=== PATIENT | female | born 1955 | race Caucasian/White ===

== ENCOUNTER 2023-06-09 15:45 | Outpatient (CLI) | payer MEDICARE | END 2023-06-09 15:46 | disposition home or self-care (01) | LOC: ULT 15:45 | PROVIDERS: ATTEND Family Medicine | DX: R60.0 Localized edema (principal) ==

== ENCOUNTER 2023-10-20 09:46 | Outpatient (CLI) | payer MEDICARE | END 2023-10-20 09:47 | disposition home or self-care (01) | LOC: BICMAMMO 09:46 | PROVIDERS: ATTEND Family Medicine | DX: Z12.31 Encounter for screening mammogram for malignant neoplasm of breast (principal); Z91.89 Other specified personal risk factors, not elsewhere classified | CPT/HCPCS: 77063; 77067 ==

== ENCOUNTER 2024-05-02 15:22 | Outpatient (CLI) | payer MEDICARE | END 2024-05-02 15:23 | disposition home or self-care (01) | LOC: BICMAMMO 15:22 | PROVIDERS: ATTEND Family Medicine | DX: Z13.820 Encounter for screening for osteoporosis (principal); M85.852 Other specified disorders of bone density and structure, left thigh; Z78.0 Asymptomatic menopausal state | CPT/HCPCS: 77080 ==

== ENCOUNTER 2024-08-15 13:00 | Inpatient (IN) | payer MEDICARE ==
[2024-08-22] MEDS ORDERED: Sodium Chloride 0.9% 100 ML ONE ×2 (06:32→14:47)
[2024-08-22] MEDS ORDERED: CEFAZOLIN 2 GM VIAL ONE ×2 (06:32→14:47)
[2024-08-22] MEDS ORDERED: Thrombin 5000 UNITS/5 ML VIAL ONE (06:36)
[2024-08-22] MEDS ORDERED: Lidocaine 2% PF 5 ML VIAL ONE (06:47)
[2024-08-22] MEDS ORDERED: fentaNYL PF 100 MCG/2 ML SYRINGE ONE ×3 (06:47→11:38)
[2024-08-22] MEDS ORDERED: Rocuronium Bromide 10 MG/ML (10ML VIAL) ONE ×2 (06:47→10:28)
[2024-08-22] MEDS ORDERED: PROPOFOL 20 ML ONE ×2 (06:47→07:51)
[2024-08-22] MEDS ORDERED: MINERAL OIL/WHITE PETROLATUM 3.5 GM TUBE ONE (06:51)
[2024-08-22] MEDS ORDERED: Promethazine HCl 25 MG/ML VIAL IM PRN (06:56)
[2024-08-22] MEDS ORDERED: Ondansetron PF 4 MG/2 ML Vial IVP PRN (06:56)
[2024-08-22] MEDS ORDERED: HYDROcodone/Acetaminophen 7.5/325 mg Tablet PO PRN (06:56)
[2024-08-22] MEDS ORDERED: Prochlorperazine 10 MG/2 ML VIAL IM PRN (06:56)
[2024-08-22] MEDS ORDERED: HYDROcodone/Acetaminophen 10/325 mg Tablet PO PRN (06:56)
[2024-08-22] MEDS ORDERED: diphenhydrAMINE 50 MG/ML VIAL IVP PRN (06:56)
[2024-08-22] MEDS ORDERED: Morphine 2 MG/ML VIAL SLOW IVP PRN (06:56)
[2024-08-22] MEDS ORDERED: Ondansetron PF 4 MG/2 ML Vial ONE (07:12)
[2024-08-22] MEDS ORDERED: Dexamethasone 4 mg/ml Vial ONE (07:12)
[2024-08-22] MEDS ORDERED: PHENYLEPHRINE-NS 100 MCG/ML 10 ML SYRINGE ONE (07:16)
[2024-08-22] MEDS ORDERED: SUGAMMADEX SODIUM 200 MG/2 ML VIAL ONE (07:19)
[2024-08-22] MEDS ORDERED: Phenylephrine 40 MG/NS 250 ML 250 ML ONE (08:17)
[2024-08-22 18:10] VITALS: BMI 33.0
[2024-08-22] MEDS: CEFAZOLIN 2 GM in Sodium Chloride 0.9% 100 ML IVPB SCH (18:18)
[2024-08-22] MEDS: Pantoprazole DR 40 MG TAB PO SCH (18:19)
[2024-08-22] MEDS: Sodium Chloride 0.9% 1,000 ML IV SCH (18:19)
[2024-08-22] MEDS: tiZANidine HCl 4 MG TAB PO PRN (21:29)
[2024-08-22] MEDS: Trospium 20 MG TAB PO SCH (22:06)
[2024-08-23] MEDS ORDERED: FESOTERODINE FUMARATE 8 MG PO SCH (09:00)
[2024-08-23] MEDS: PARoxetine 20 MG TAB PO SCH (09:10)
[2024-08-23 12:03] VITALS: BP 137/81; TEMP 98.7
[2024-08-23] MEDS: TERIFLUNOMIDE 14 MG PO SCH (16:06)
== END 2024-08-23 15:25 | disposition home or self-care (01) | DRG 472 ==
LOC: SURG A 08-22 05:25 → EDSTATUS 08-22 13:00 → SURG A 08-22 17:42
PROVIDERS: ADMIT Neurological Surgery; ATTEND Neurological Surgery
PROC: 0RG20A0 Fusion of 2 or more Cervical Vertebral Joints with Interbody Fusion Device, Anterior Approach, Anterior Column, Open Approach (ICD-10-PCS; principal; 2024-08-22)
PROC: 0RB30ZZ Excision of Cervical Vertebral Disc, Open Approach (ICD-10-PCS; 2024-08-22)
DX: M48.02 Spinal stenosis, cervical region (principal); G95.20 Unspecified cord compression; G99.2 Myelopathy in diseases classified elsewhere; F41.9 Anxiety disorder, unspecified; G89.29 Other chronic pain; M54.9 Dorsalgia, unspecified; F32.A Depression, unspecified; G35 Multiple sclerosis; Z79.899 Other long term (current) drug therapy; Z88.2 Allergy status to sulfonamides; Z88.5 Allergy status to narcotic agent; Z87.891 Personal history of nicotine dependence; Z99.3 Dependence on wheelchair
CPT/HCPCS: C1713; J1100; J2001; J2405; J2704